=== PATIENT | female | born 1960 | race Caucasian/White ===

== ENCOUNTER 2022-07-20 23:49 | Emergency (ER) | payer MEDICARE, MEDICAID ==
[~2022-07-20] VITALS: Ht 160 cm; Wt 50.9 kg
[2022-07-21 00:21] VITALS: BP 114/63
== END 2022-07-21 00:42 | disposition home or self-care (01) ==
LOC: EDBD 23:49 → M ED 23:49
DX: T85.528A Displacement of other gastrointestinal prosthetic devices, implants and grafts, initial encounter (principal)